=== PATIENT | male | born 1960 | race African-American/Black ===

== ENCOUNTER 2018-07-04 12:02 | Inpatient (IN) | payer MEDICAID ==
[~2018-07-04] VITALS: Ht 167.6 cm; Wt 57.6 kg
[2018-07-04 12:07] VITALS: BP 102/70
--- NOTE | 2018-07-04 12:10 | NUR ---
Pt to rm 10 via [facility]
--- NOTE | 2018-07-04 12:15 | NUR ---
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 PER REPORT, PT WAS 80S SYSTOLIC. ON ARRIVAL, OL=373/70. IVF FLUIDS GIVEN POULTRY DRESSING WORKER VIA 22G TO LEFT FOREARM. PT IS NON VERBAL, SPONTANEOUS EYE MOMENT, SPONTANEOUS MOVEMENT TO BL ARMS. PT HAS TRACHEOSTOMY TO 2L OF NC. PER REPORT, PT IS ACTING AT NEURO BASELINE. RR ARE EVEN AND UNLABORED. PULSE HH=509% 2L NC. ABD SOFT AND NON TENDER. GT NOTED TO ABD, DRESSING DRY/CLEAN/INTACT. PT IS 0/10 ON FLACC PAIN SCALE. NAD. PT TO CARDIAC, BP, PULSE, AND PULSE OX MONITORING. ER MD LINK AWARE OF PATIENT STATUS. WILL CONTINUE TO MONITOR.
[2018-07-04] MEDS ORDERED: LACT1CAP59 GT (12:33)
[2018-07-04] MEDS ORDERED: VALP-22 GT (12:33)
[2018-07-04] MEDS ORDERED: CHLO480L1 PO (12:33)
[2018-07-04] MEDS ORDERED: ASPI-1129 GT (12:33)
[2018-07-04] MEDS ORDERED: ACET-7756 PO (12:33)
[2018-07-04] MEDS ORDERED: HYDR-5123 PO (12:33)
[2018-07-04] MEDS ORDERED: PRON INH (12:33)
[2018-07-04] MEDS ORDERED: MULT1SGL58 GT (12:33)
[2018-07-04] MEDS ORDERED: COL100L GT (12:33)
[2018-07-04] MEDS ORDERED: KEP500L GT (12:33)
[2018-07-04] MEDS ORDERED: ATEN50TA8 GT (12:33)
[2018-07-04] MEDS ORDERED: FAMO-90 GT (12:33)
[2018-07-04] MEDS ORDERED: ASCO500T45 GT (12:33)
[2018-07-04] MEDS ORDERED: BACL10TA4 GT (12:33)
[2018-07-04] MEDS ORDERED: HEPA500056 SUBQ (12:33)
--- NOTE | 2018-07-04 12:38 | NUR ---
lab by bedside
--- NOTE | 2018-07-04 12:40 | NUR ---
influenza swab collected and sent to lab
--- NOTE | 2018-07-04 12:40 | NUR ---
# 16 FR Urinary catheter inserted utilizing sterile technique. Immediate return of 100 ml dark yellow slightly cloudy urine noted. Urine sample collected and sent to lab. Pt tolerated procedure well.
--- NOTE | 2018-07-04 12:46 | NUR ---
xray by bedside
[2018-07-04 13:07] LABS: BASOPHILS % (AUTO) 0.2 % (0.0-2.0); EOSINOPHILS # (AUTO) 0.1 K/uL (0-0.4); EOSINOPHILS % (AUTO) 1.2 % (0.0-4.0); HEMATOCRIT 37.9 % (36-52); HEMOGLOBIN 12.1 g/dL (12.0-18.0); LYMPHOCYTES # (AUTO) 2.5 K/uL (2.0-11.5); LYMPHOCYTES % (AUTO) 19.7 % (20.5-51.1); MEAN CORPUSCULAR HEMOGLOBIN 30 pg (27-31); MEAN CORPUSCULAR HGB CONC 32 g/dL (33-37); MEAN CORPUSCULAR VOLUME 93.4 fL (80-94); MONOCYTES # (AUTO) 1.3 K/uL (0.8-1.0); MONOCYTES % (AUTO) 9.8 % (1.7-9.3); NEUTROPHILS # (AUTO) 8.8 K/uL (1.8-7.7); NEUTROPHILS % (AUTO) 69.1 % (42.2-75.2); PLATELET COUNT (AUTO) 228 K/uL (140-450); RED BLOOD CELL COUNT(AUTO) 4.06 MIL/uL (4.20-6.10); RED CELL DISTRIBUTION WIDTH 13.6 % (11.6-13.7); WHITE BLOOD COUNT (AUTO) 12.8 K/uL (4.8-10.8)
[2018-07-04 13:08] LABS: APPEARANCE,URINE CLEAR (CLEAR); BILIRUBIN,URINE NEGATIVE (NEGATIVE); BLOOD, URINE NEGATIVE (NEGATIVE); COLOR,URINE YELLOW (YELLOW); LEUKOCYTE ESTERASE ,URINE NEGATIVE (NEGATIVE); NITRITE, URINE NEGATIVE (NEGATIVE); PH,URINE 7.5 (5.0-9.0); UGLUCOSE NEGATIVE (NEGATIVE)
[2018-07-04 13:28] LABS: ALBUMIN 2.9 g/dL (3.4-5.0); ANION GAP 8.4 (8-16); CREATININE 0.5 mg/dL (0.7-1.3); POTASSIUM 4.4 mmol/L (3.5-5.1); TOTAL BILIRUBIN 0.3 mg/dL (0.0-1.0)
--- NOTE | 2018-07-04 13:43 | NUR ---
AWAITING LAB RESULTS. NAD. VSS. WILL CONTINUE TO MONITOR.
[2018-07-04] MEDS ORDERED: ZOLPIDEM 5 MG TAB PO PRN (14:25)
[2018-07-04] MEDS ORDERED: LORazepam 2 MG/ML VIAL IM/IVP PRN (14:25)
[2018-07-04] MEDS ORDERED: ONDANSETRON 4 MG/2 ML VIAL IM/IVP PRN (14:25)
[2018-07-04] MEDS ORDERED: ACETAMINOPHEN 325 MG TAB PO PRN (14:25)
[2018-07-04] MEDS ORDERED: DOCUSATE SODIUM 100 MG GELCAP PO PRN (14:25)
[2018-07-04] MEDS ORDERED: HYDROcodone/APAP 5/325 MG 1 TAB TAB PO PRN (14:25)
[2018-07-04] MEDS: NACL 0.9% 1,000 ML IV SCH ×3 (14:33→16:03)
[2018-07-04] MEDS ORDERED: ALBUTEROL SULFATE/IPRATROPIU 3 ML SOL IH PRN (14:45)
[2018-07-04] MEDS ORDERED: HYDROcodone/APAP 7.5/325 MG 1 TAB PO PRN (14:45)
[2018-07-04] MEDS ORDERED: ACETAMINOPHEN 160 MG/5 ML UDC PO PRN (14:45)
--- NOTE | 2018-07-04 15:15 | NUR ---
Admitted pt from ER at this time via gurney. Transferred to bed via 3-person total assist. Received bedside report from ER nurse. Pt is awake, nonverbal, able to nod head in reply to some questions. Left upper arm IV patent & asymptomatic. Respirations even & nonlabored on O2 @ 3Lpm via trach. Rhonchi present to bilat lung zheng. Mod amt thick yellow secretions present upon trach suctioning. Trach dressing clean & dry. Gtube intact & in place. Pt oriented to room & unit. Unable to return demonstrate use of call button. Call light within reach.
--- NOTE | 2018-07-04 15:27 | NUR ---
Patient will be admitted to care of DR. MIRANDA. Admited to TELE. Will go to room 107A. Belongings list completed. Report to ASHLEY SOLIS.
[2018-07-04 15:30] VITALS: BP 81/45
[2018-07-04 15:36] LABS: BARBITURATE, URINE NEG. ng/ml (NEG <=200); BENZODIAZEPINE, URINE NEG. ng/mL (NEG <=200); CANNABINOID, URINE NEG. ng/mL (NEG <=50); COCAINE, URINE NEG. ng/mL (NEG <=300); OPIATE, URINE NEG. ng/mL (NEG <=2000); PHENCYCLIDINE SCREEN,URINE NEG. ng/mL (NEG <=25)
[2018-07-04 15:45] LABS: CHOL/HDL RATIO 2.6 (1-4.5); MAGNESIUM 1.6 mg/dL (1.8-2.4); PHOSPHORUS 2.9 mg/dL (2.5-4.9); PROTHROMBIN TIME 10.1 secs (10.8-13.4); THYROID STIMULATING HORMONE 1.77 uIU/mL (0.34-3.74)
[2018-07-04] MEDS ORDERED: NACL 0.9% 500 ML IV ONE (15:55)
--- NOTE | 2018-07-04 16:04 | NUR ---
Initiated bolus NS 500ml to left upper arm IV. Pt awake, nonverbal, respirations even & nonlabored on O2 @ 3Lpm via trach.
[2018-07-04] MEDS ORDERED: PIPER/TAZO 3.375GM/D5W PREMIX 50 ML IV SCH ×2 (16:16→21:00)
[2018-07-04 17:00] VITALS: BP 95/57
--- NOTE | 2018-07-04 17:00 | NUR ---
Observed pt pulling on trach with his right hand. Mod bleeding observed to trach peristoma. Trach intact. RT Vinay notified. Pt's respirations even & nonlabored, SaO2 @ 100% on 3Lpm via trach. NS 500ml bolus completed. BP reassessed. Dr Haynes notified of trach bleeding d/t pulling on tubes. Left upper arm IV intact, ongoing NS @ 60ml/hr.
--- NOTE | 2018-07-04 17:15 | NUR ---
Bilat soft wrist restraints applied d/t episodes of pulling on tubes/lines despite hiding them. Safety measures in place. Will cont to monitor.
[2018-07-04] MEDS ORDERED: ALBUTEROL 0.083% 2.5 MG/3 ML NEBU INH SCH (18:00)
[2018-07-04] MEDS ORDERED: ALBUTEROL SULFATE/IPRATROPIU 3 ML SOL IH SCH (18:00)
[2018-07-04] MEDS ORDERED: MAG SULF 2000 MG/WATER PREMIX 50 ML IV SCH (19:00)
--- NOTE | 2018-07-04 19:25 | NUR ---
RECEIVED PATIENT WITH TRACH TO T-PIECE WITH 32% OXYGEN. RESPIRATION EVEN AND NON-LABORED. WITH BILATERAL SOFT WRIST RESTRAINT IN PLACE. NO S/S OF DISTRESS NOTED.AT THIS TIME. REPOSITIONED PATIENT AND PLACE IN COMFORTABLE POSITION. CALL LIGHT WITHIN REACH.
[2018-07-04] MEDS: ALBUTEROL SULFATE/IPRATROPIU 3 ML SOL IH SCH (20:22)
[2018-07-04] MEDS: VALPROIC ACID 250 MG/5 ML UDC GT SCH (20:41)
[2018-07-04] MEDS: DOCUSATE 100 MG/10 ML UDC GT SCH (20:41)
[2018-07-04] MEDS: levETIRAcetam 100 MG/ML ORASYR GT SCH (20:42)
[2018-07-04] MEDS: PIPER/TAZO 3.375GM/D5W PREMIX 50 ML IV SCH (20:43)
[2018-07-04] MEDS: BACLOFEN 10 MG TAB GT SCH (20:43)
[2018-07-04] MEDS: FAMOTIDINE 20 MG TAB GT SCH (20:43)
[2018-07-04] MEDS: ASCORBIC ACID 500 MG TAB GT SCH (20:44)
--- NOTE | 2018-07-04 21:00 | NUR ---
V/S TAKEN AND RECORDED. SCHEDULE MEDICATION GIVEN . TOLERATED WELL. TUBE FEEDING RUNNING. HOB ELEVATED. CHECK RESTRAINTS FOR CIRCULATION. NO S/S OF DISTRESS NOTED.CALL LIGHT WITHIN REACH. WILL CONTINUE TO MONITOR.
--- NOTE | 2018-07-04 22:30 | NUR ---
RECEIVED PT FROM MARJORIE FOR CONTINUITY OF CARE
[2018-07-05] VITALS: BP 137/56
--- NOTE | 2018-07-05 | NUR ---
V/S T6AKEN, NO RESPIRATORY DISTRESS, CONTINUES ON O2 VIA TRACH TO T-PIECE. TURN FOR COMFORT. RELEASE RESTRAINT FOR 10 MIN.
--- NOTE | 2018-07-05 02:00 | NUR ---
CHECKED PT. RELEASE RESTRAINT FOR 10 MIN,SKIN OK.
[2018-07-05 04:00] VITALS: BP 106/63
--- NOTE | 2018-07-05 04:00 | NUR ---
NO RESPIRATORY DISTRESS, RESTRAINT RELEASE FOR 10 MIN. RT WILL DO TRACH CARE.
[2018-07-05] MEDS: PIPER/TAZO 3.375GM/D5W PREMIX 50 ML IV SCH ×3 (04:50→20:52)
[2018-07-05] MEDS: BACLOFEN 10 MG TAB GT SCH ×3 (04:58→20:51)
--- NOTE | 2018-07-05 06:00 | NUR ---
NO RESPIRATORY DISTRESS, CONTUES ON 02 VIA TRACH TO T-PIECE, TOOLERATING TUBE FEEDING.
[2018-07-05] MEDS: NACL 0.9% 1,000 ML IV SCH (07:03)
[2018-07-05] MEDS: ALBUTEROL SULFATE/IPRATROPIU 3 ML SOL IH SCH ×3 (07:05→19:18)
[2018-07-05] MEDS ORDERED: ALBUTEROL SULFATE/IPRATROPIU 3 ML SOL IH PRN (07:15)
--- NOTE | 2018-07-05 07:20 | NUR ---
RECEIVED BEDSIDE REPORT FROM UI DESIGNER NURSE. PATIENT NONVERBAL AND BEDBOUND. PATIENT ON TRACH AT 8 L, NO RESPIRATORY DISTRESS AT THIS TIME. PATIENT INCONTINENT OF BOWEL AND BLADDER. IV ON RUTH 22 G INFUSING NS AT 60, CLEAN DRY AND INTACT. PATIENT G TUBE IN PLACE, RUNNING JEVITY 1.2 AT 70 H2O FLUSH 250 Q 12HR. G TUBE DRY AND INTACT. PATIENT ON FALL RISK PRECAUTION. BED IN LOW POSITION, CALL LIGHT WITHIN REACH. WILL CONTINUE TO MONITOR.
[2018-07-05 08:00] VITALS: BP 99/64
[2018-07-05 08:12] LABS: BASOPHILS % (AUTO) 0.3 % (0.0-2.0); EOSINOPHILS # (AUTO) 0.2 K/uL (0-0.4); EOSINOPHILS % (AUTO) 1.7 % (0.0-4.0); HEMOGLOBIN 11.4 g/dL (12.0-18.0); LYMPHOCYTES # (AUTO) 2.8 K/uL (2.0-11.5); LYMPHOCYTES % (AUTO) 27.2 % (20.5-51.1); MEAN CORPUSCULAR HEMOGLOBIN 30 pg (27-31); MEAN CORPUSCULAR HGB CONC 33 g/dL (33-37); MEAN CORPUSCULAR VOLUME 92.9 fL (80-94); MONOCYTES % (AUTO) 9.9 % (1.7-9.3); NEUTROPHILS # (AUTO) 6.2 K/uL (1.8-7.7); NEUTROPHILS % (AUTO) 60.9 % (42.2-75.2); PLATELET COUNT (AUTO) 200 K/uL (140-450); RED BLOOD CELL COUNT(AUTO) 3.76 MIL/uL (4.20-6.10); RED CELL DISTRIBUTION WIDTH 13.5 % (11.6-13.7); WHITE BLOOD COUNT (AUTO) 10.2 K/uL (4.8-10.8)
[2018-07-05] MEDS ORDERED: LACTOBACILLUS RHAMNOSUS GG 1 EACH CAP PO SCH (09:00)
[2018-07-05] MEDS ORDERED: ATENOLOL 50 MG TAB GT SCH (09:00)
[2018-07-05 09:13] LABS: CARBON DIOXIDE 28.4 mmol/L (21-32); CREATININE 0.6 mg/dL (0.7-1.3); POTASSIUM 4.4 mmol/L (3.5-5.1)
[2018-07-05] MEDS: levETIRAcetam 100 MG/ML ORASYR GT SCH ×2 (09:16→20:50)
[2018-07-05] MEDS: DOCUSATE 100 MG/10 ML UDC GT SCH ×2 (09:16→20:48)
[2018-07-05] MEDS: VALPROIC ACID 250 MG/5 ML UDC GT SCH ×2 (09:16→20:50)
[2018-07-05] MEDS: FAMOTIDINE 20 MG TAB GT SCH ×2 (09:17→20:51)
[2018-07-05] MEDS: ASCORBIC ACID 500 MG TAB GT SCH ×2 (09:17→20:52)
[2018-07-05 09:27] LABS: MAGNESIUM 2.1 mg/dL (1.8-2.4)
--- NOTE | 2018-07-05 09:29 | NUR ---
CALLED PHARMACY REGARDING LACTOBACILLUS CAPSULE PO ROUTE. PHARMACY SWITCHED IT TO GT ROUTE. ADMINISTERED LACTOBACILLUS CAPSULE VIA GT.
--- NOTE | 2018-07-05 09:39 | NUR ---
ADMINISTERED SCHEDULED MEDS VIA G TUBE. CHECKED FOR PLACEMENT, SWISH HEARD, AND 0 ML RESIDUAL. PATIENT TOLERATED WELL. WILL CONTINUE TO MONITOR.
[2018-07-05] MEDS ORDERED: NACL 0.9% 500 ML IV ONE (11:35)
--- NOTE | 2018-07-05 11:39 | NUR ---
DR. PACE NOTIFIED OF BP 81/46, PULSE 78 AND ANOTHER BP 85/48 PULSE 76. ORDERED BOLUS OF 500 NS. PATIENT STARTED ON NS 500 BOLUS. WILL RECHECK BLOOD PRESSURE.
[2018-07-05 12:00] VITALS: BP 97/59
[2018-07-05] MEDS ORDERED: ALBUTEROL SULFATE/IPRATROPIU 3 ML SOL IH SCH (12:00)
--- NOTE | 2018-07-05 12:23 | NUR ---
DR. PACE NOTIFIED VIA PHONE OF BP 97/59 AND PULSE 62. PATIENT ASYMPTOMATIC. DR BROWN WITH BP AND PULSE. NO FURTHER ACTION NEEDED
--- NOTE | 2018-07-05 15:13 | NUR ---
ASSESSED PATIENTS SOFT WRIST RESTRAINTS, 2 FINGER WIDTH APART, CAP REFILL LESS THAN 2 SECONDS, PALPABLE PULSES ON BOTH WRISTS. NO SIGNS OF DISTRESS AT THIS TIME, ON TRACH 8 L. WILL CONTINUE TO MONITOR.
[2018-07-05 16:38] VITALS: BP 94/50
--- NOTE | 2018-07-05 18:24 | NUR ---
SPOKE TO DR. JOYCE REGARDING RENEWAL OF SOFT WRIST RESTRAINTS. ORDER IS IN PROCESS.
--- NOTE | 2018-07-05 19:30 | NUR ---
PT AWAKE,ALERT,SPEAKS A LITTLE ARABIC.C/O PAIN IV SITE AND LOOKS RED AND SWOLLEN. STOP IV AND WILL START A NEW ONE ARYA.
--- NOTE | 2018-07-05 19:30 | NUR ---
PT AWAKE, APHASIC, NO SIGN OF RESPIRATORY DISTRESS O2 ON VIA TRACH T-PIECE.
--- NOTE | 2018-07-05 19:47 | NUR ---
GAVE BEDSIDE REPORT TO DENTAL HYGIENE PROFESSOR NURSE. PATIENT ENDORSED IN STABLE CONDITION.
[2018-07-05 20:00] VITALS: BP 108/51
--- NOTE | 2018-07-05 20:00 | NUR ---
IV RESTARTED IN THE L WRIST WITH #20 GAUGE. Addendum: 07/05/18 at 2020 by Marce Smith RN NOTES FOR 1929 AND 1999 IS WRONG PT/.
--- NOTE | 2018-07-05 22:00 | NUR ---
RESTING QUIETLY, RESTRAINT IN PLACE, PT PULLS OUT TRACH AD IV TUBING WHEN AWAKE.
[2018-07-06] VITALS: BP_SYST 100; BP_SYST 90; BP_DIAS 43; BP_DIAS 64
--- NOTE | 2018-07-06 00:20 | NUR ---
RECEIVED REPORT FROM COLLECTION MANAGER LINDA FOR CONTINUITY OF CARE. PT IS NON-VERBAL ON 8L O2 VIA TRACH TO T-PIECE. PT IS UNABLE TO MAKE NEEDS KNOWN, UNABLE TO FOLLOW COMMANDS. PT IS BEDBOUND, AND SKIN IS INTACT. PT HAS A 22G IV TO LEFT UPPER ARM, ASYMPTOMATIC AND INTACT. G-TUBE IN PLACE WITH TUBE FEEDING. DISCUSSED PLAN OF CARE WITH PT. VITAL SIGNS WITHIN NORMAL LIMITS. PT STABLE, DENIES PAIN, NO SIGNS OF DISTRESS NOTED AT THIS TIME. PT POSITIONED FOR COMFORT. BED IN LOWEST POSITION, BED ALARM ON. CALL LIGHT WITHIN REACH, WILL CONTINUE TO MONITOR.
[2018-07-06] MEDS: NACL 0.9% 1,000 ML IV SCH ×2 (01:44→16:23)
--- NOTE | 2018-07-06 02:39 | NUR ---
T-PIECE FOUND OFF TRACH AND ON BED, REATTACHED IT BUT WHEN I CAME BACK IN T-PIECE WAS ON THE BED AGAIN. CALLED RT KACIE AND HE IS FIXING IT NOW.
[2018-07-06 04:00] VITALS: BP 105/57
--- NOTE | 2018-07-06 04:00 | NUR ---
VITAL SIGNS WITHIN NORMAL LIMITS. PT STABLE, DENIES PAIN, NO SIGNS OF DISTRESS NOTED AT THIS TIME. PT POSITIONED FOR COMFORT. BED IN LOWEST POSITION, BED ALARM ON. CALL LIGHT WITHIN REACH, WILL CONTINUE TO MONITOR.
[2018-07-06] MEDS: PIPER/TAZO 3.375GM/D5W PREMIX 50 ML IV SCH ×3 (05:38→20:55)
[2018-07-06] MEDS: BACLOFEN 10 MG TAB GT SCH ×3 (05:38→20:56)
--- NOTE | 2018-07-06 05:39 | NUR ---
ADMINISTERED SCHEDULED MEDICATIONS, PT TOLERATED WELL.
--- NOTE | 2018-07-06 07:32 | NUR ---
ENDORSED PT TO IRMA CROWLEY FOR CONTINUITY OF CARE. PT IN STABLE CONDITION.
--- NOTE | 2018-07-06 07:38 | NUR ---
RECEIVED BEDSIDE REPORT FROM OXYACETYLENE CUTTER RN. PT IS APHASIC. FLACC 0. NO S/S RESPIRATORY DISTRESS. SKIN INTACT. ON 8L O2 VIA TRACH TO T-PIECE, SATURATING 100%. PT IS UNABLE TO MAKE NEEDS KNOWN, UNABLE TO FOLLOW COMMANDS. PT IS BEDBOUND AND INCONTINENT. IV SITE PATENT AND ASYMPTOMATIC, INFUSING IVF PER MD ORDERS. G-TUBE FEEDINGS AT GOAL RATE 70ML/HR. RESTRAINTS IN PLACE, PT HAS BEEN PULLING AT TRACH. ALL SAFETY PRECAUTIONS IN PLACE, WILL CONTINUE TO MONITOR.
[2018-07-06 07:54] LABS: BASOPHILS % (AUTO) 0.3 % (0.0-2.0); EOSINOPHILS # (AUTO) 0.1 K/uL (0-0.4); HEMATOCRIT 33.9 % (36-52); HEMOGLOBIN 11.1 g/dL (12.0-18.0); LYMPHOCYTES # (AUTO) 2.6 K/uL (2.0-11.5); LYMPHOCYTES % (AUTO) 28.7 % (20.5-51.1); MEAN CORPUSCULAR HEMOGLOBIN 31 pg (27-31); MEAN CORPUSCULAR HGB CONC 33 g/dL (33-37); MEAN CORPUSCULAR VOLUME 94.8 fL (80-94); MONOCYTES # (AUTO) 0.8 K/uL (0.8-1.0); MONOCYTES % (AUTO) 8.7 % (1.7-9.3); NEUTROPHILS # (AUTO) 5.4 K/uL (1.8-7.7); NEUTROPHILS % (AUTO) 61.3 % (42.2-75.2); PLATELET COUNT (AUTO) 154 K/uL (140-450); RED BLOOD CELL COUNT(AUTO) 3.58 MIL/uL (4.20-6.10); RED CELL DISTRIBUTION WIDTH 13.4 % (11.6-13.7); WHITE BLOOD COUNT (AUTO) 8.9 K/uL (4.8-10.8)
[2018-07-06 08:00] VITALS: BP 84/47
[2018-07-06 08:18] LABS: ANION GAP 10.3 (8-16); CARBON DIOXIDE 28.9 mmol/L (21-32); CREATININE 0.6 mg/dL (0.7-1.3); POTASSIUM 4.2 mmol/L (3.5-5.1)
[2018-07-06 08:24] LABS: MAGNESIUM 1.9 mg/dL (1.8-2.4); PHOSPHORUS 3.2 mg/dL (2.5-4.9)
[2018-07-06] MEDS: ALBUTEROL SULFATE/IPRATROPIU 3 ML SOL IH SCH ×3 (08:45→19:08)
[2018-07-06] MEDS: levETIRAcetam 100 MG/ML ORASYR GT SCH ×2 (09:02→20:55)
[2018-07-06] MEDS: VALPROIC ACID 250 MG/5 ML UDC GT SCH (09:02)
[2018-07-06] MEDS: DOCUSATE 100 MG/10 ML UDC GT SCH ×2 (09:02→20:55)
[2018-07-06] MEDS: ASCORBIC ACID 500 MG TAB GT SCH ×2 (09:03→20:56)
[2018-07-06] MEDS: LACTOBACILLUS RHAMNOSUS GG 1 EACH CAP GT SCH (09:03)
[2018-07-06] MEDS: FAMOTIDINE 20 MG TAB GT SCH ×2 (09:03→20:56)
--- NOTE | 2018-07-06 09:20 | NUR ---
PATIENT HAS BEEN SCREENED AND CATEGORIZED HIGH NUTRITION RISK. PATIENT WILL BE SEEN WITHIN 1-2 DAYS OF ADMISSION. 07/05/18 07/06/[address]
--- NOTE | 2018-07-06 10:12 | NUR ---
T PIECE OFF PATIENT. NO DESATURATION. NO S/S RESPIRATORY DISTRESS. SECURED BACK ONTO PT.
[2018-07-06 12:00] VITALS: BP 105/61
--- NOTE | 2018-07-06 13:01 | NUR ---
PT SLEEPING IN BED, EYES OPENING TO VOICE. FLACC 0. ALL SAFETY PRECAUTIONS IN PLACE, WILL CONTINUE TO MONITOR.
--- NOTE | 2018-07-06 14:00 | NUR ---
07/06/18 RD INITIAL ASSESSMENT COMPLETED PLEASE REFER TO NUTRITION ASSESSMENT UNDER CARE ACTIVITY FOR ESTIMATED NUTRITIONAL NEEDS. 1. RECOMMEND DECREASE TUBE FEEDING RATE TO 60 ML/HR JEVITY 1.2 AT 60 ML/HR VIA GTUBE - THIS WILL PROVIDE 1440 ML TOTAL VOLUME, 1728 KCAL, 80 GM PROTEIN TO MEET 100% OF PT ESTIMATED KCAL AND PROTEIN NEEDS 3. RD TO FOLLOW-UP 2-3 DAYS, HIGH RISK MORGAN RIVERA, RD
--- NOTE | 2018-07-06 14:15 | NUR ---
SCHEDULED MEDICATIONS ADMINISTERS PER MD ORDERS.
[2018-07-06 16:00] VITALS: BP 110/74
--- NOTE | 2018-07-06 16:40 | NUR ---
NEW FEEDING JEVITY 1.2 STARTED. RATE 70ML/HR.
[2018-07-06] MEDS ORDERED: VALPROIC ACID 250 MG/5 ML UDC GT SCH (17:00)
--- NOTE | 2018-07-06 19:15 | NUR ---
RECEIVED BEDSIDE REPORT FROM RN KEO, PATIENT IN BED, NOTED TRAC TO T PIECE, ON 8 L. V/S TAKEN NOTED O2SAT 100 RR 18 UNLABORED. PATIENT SHOWING NO SIGNS OF ACUTE DISTRESS. NOTED IV IN LEFT UPPER ARM INFUSING NS AT 60 ML/HR, DRESSING INTACT. WILL GIVE MEDS, CALL LIGHT WITHIN REACH, WILL CONTINUE MONITOR.
--- NOTE | 2018-07-06 19:15 | NUR ---
ENDORSED POC TO LENS ASSISTANT RN AT BEDSIDE. PT IN STABLE CONDITION.
[2018-07-06 20:00] VITALS: BP 128/79
--- NOTE | 2018-07-06 20:32 | NUR ---
ATTEMPTED TO REMOVE SOFT WRIST RESTRAINTS, CIRCULATION NOT COMPROMISED, PATIENT ATTEMPTED TO PULL ON TRAC TUBING. WILL CONTINUE TO MONITOR.
--- NOTE | 2018-07-06 20:56 | NUR ---
DUE MEDICATIONS GIVEN, PATIENT TOLERATED WELL, 10 RESIDUES NOTED. WILL CONTINUE TO MONITOR.
--- NOTE | 2018-07-06 22:32 | NUR ---
RESTRAINTS STILL NEEDED DUE TO PATIENT ATTEMPTING TO PULL ON TRAC TUBING. WILL CONTINUE TO MONITOR NEED OF RESTRAINTS AND ASSESS CIRCULATION.
[2018-07-07] VITALS: BP 111/69
--- NOTE | 2018-07-07 00:32 | NUR ---
PATIENT PULLING AT TUBES, WILL CONTINUE WITH SOFT WRIST RESTRAINTS.
--- NOTE | 2018-07-07 02:32 | NUR ---
PATIENT PULLING AT TUBES, WILL CONTINUE WITH SOFT WRIST RESTRAINTS. WILL CONTINUE TO ASSES CIRCULATION.
[2018-07-07 04:00] VITALS: BP_SYST 136; BP_SYST 146; BP_DIAS 66
--- NOTE | 2018-07-07 04:00 | NUR ---
V/S TAKEN NOTED BP 136/66 WILL CONTINUE TO MONITOR.
[2018-07-07] MEDS: BACLOFEN 10 MG TAB GT SCH ×3 (04:09→21:43)
[2018-07-07] MEDS: PIPER/TAZO 3.375GM/D5W PREMIX 50 ML IV SCH ×3 (04:09→21:44)
--- NOTE | 2018-07-07 06:15 | NUR ---
PATIENT PULLING AT TUBES, WILL CONTINUE WITH SOFT WRIST RESTRAINTS. WILL CONTINUE TO MONITOR.
--- NOTE | 2018-07-07 07:19 | NUR ---
ENDORSED PATIENT TO DAY SHIFT NURSE, PATIENT STABLE.
[2018-07-07] MEDS: ALBUTEROL SULFATE/IPRATROPIU 3 ML SOL IH SCH ×3 (07:23→19:50)
--- NOTE | 2018-07-07 07:26 | NUR ---
RECEIVED BEDSIDE REPORT FROM CLEANER AND PREPARER RN. PT IS APHASIC. EYES OPENING SPONTANEOUSLY. FLACC 0. VITALS STABLE. NO S/S RESPIRATORY DISTRESS. SKIN INTACT. ON 8L O2 VIA TRACH TO T-PIECE, SATURATING 100%. PT IS UNABLE TO VERBALIZE NEEDS, UNABLE TO FOLLOW COMMANDS. PT IS BEDBOUND AND INCONTINENT. IV SITE PATENT AND ASYMPTOMATIC, INFUSING IVF PER MD ORDERS. G-TUBE FEEDINGS AT GOAL RATE 70ML/HR. RESTRAINTS IN PLACE, PT HAS BEEN PULLING AT TRACH. ALL SAFETY PRECAUTIONS IN PLACE, WILL CONTINUE TO MONITOR.
[2018-07-07 07:51] LABS: BASOPHILS % (AUTO) 0.3 % (0.0-2.0); EOSINOPHILS # (AUTO) 0.1 K/uL (0-0.4); EOSINOPHILS % (AUTO) 1.3 % (0.0-4.0); HEMATOCRIT 36.6 % (36-52); HEMOGLOBIN 11.8 g/dL (12.0-18.0); LYMPHOCYTES # (AUTO) 2.7 K/uL (2.0-11.5); LYMPHOCYTES % (AUTO) 26.8 % (20.5-51.1); MEAN CORPUSCULAR HEMOGLOBIN 30 pg (27-31); MEAN CORPUSCULAR HGB CONC 32 g/dL (33-37); MEAN CORPUSCULAR VOLUME 93.3 fL (80-94); MONOCYTES % (AUTO) 10.4 % (1.7-9.3); NEUTROPHILS # (AUTO) 6.1 K/uL (1.8-7.7); NEUTROPHILS % (AUTO) 61.2 % (42.2-75.2); PLATELET COUNT (AUTO) 193 K/uL (140-450); RED BLOOD CELL COUNT(AUTO) 3.92 MIL/uL (4.20-6.10); RED CELL DISTRIBUTION WIDTH 13.7 % (11.6-13.7)
[2018-07-07 08:00] VITALS: BP 136/97
[2018-07-07] MEDS ORDERED: VALPROIC ACID 250 MG/5 ML UDC GT SCH ×2 (08:07→21:00)
[2018-07-07 08:10] LABS: ANION GAP 13.9 (8-16); CARBON DIOXIDE 28.2 mmol/L (21-32); CREATININE 0.5 mg/dL (0.7-1.3); POTASSIUM 4.1 mmol/L (3.5-5.1)
[2018-07-07] MEDS: levETIRAcetam 100 MG/ML ORASYR GT SCH ×2 (08:38→21:43)
[2018-07-07] MEDS: DOCUSATE 100 MG/10 ML UDC GT SCH ×2 (08:38→21:43)
[2018-07-07] MEDS: ASCORBIC ACID 500 MG TAB GT SCH ×2 (08:39→21:44)
[2018-07-07] MEDS: ATENOLOL 25 MG TAB GT SCH (08:39)
[2018-07-07] MEDS: FAMOTIDINE 20 MG TAB GT SCH ×2 (08:39→21:44)
[2018-07-07] MEDS: NACL 0.9% 1,000 ML IV SCH ×2 (08:40→19:27)
[2018-07-07] MEDS: LACTOBACILLUS RHAMNOSUS GG 1 EACH CAP GT SCH (08:40)
[2018-07-07 08:42] LABS: PHOSPHORUS 3.2 mg/dL (2.5-4.9)
--- NOTE | 2018-07-07 10:14 | NUR ---
CHANGED PATIENT'S BEDSHEETS AND REPOSITIONED FOR COMFORT. NO S/S DISTRESS. ALL SAFETY PRECAUTIONS IN PLACE, WILL CONTINUE TO MONITOR.
[2018-07-07 12:00] VITALS: BP 124/81
[2018-07-07] MEDS: VALPROIC ACID 250 MG/5 ML UDC GT SCH (12:10)
--- NOTE | 2018-07-07 12:11 | NUR ---
SCHEDULED MEDICATIONS ADMINISTERED. GASTRIC RESIDUAL LESS THAN 20 ML. G-TUBE FEEDINGS RUNNING CONTINUOUSLY. HOB 30 DEGREES. WILL CONTINUE TO MONITOR.
--- NOTE | 2018-07-07 15:04 | NUR ---
PT SLEEPING IN BED, EYES OPENING TO TOUCH. BEDSHEETS CHANGED AND PT POSITIONED FOR COMFORT. ALL SAFETY PRECAUTIONS IN PLACE, WILL CONTINUE TO MONITOR.
[2018-07-07 16:00] VITALS: BP 130/99
--- NOTE | 2018-07-07 16:48 | NUR ---
PT HAD BM SMEAR. CLEANED UP PATIENT AND REPOSITIONED FOR COMFORT. ALL SAFETY PRECAUTIONS IN PLACE, WILL CONTINUE TO MONITOR.
--- NOTE | 2018-07-07 19:05 | NUR ---
ENDORSED POC TO SCALES INSPECTOR RN. PT IN STABLE CONDITION.
--- NOTE | 2018-07-07 19:05 | NUR ---
RECEIVED BEDSIDE REPORT FROM RN KEO, PATIENT IN BED, APHASIC, TRAC TO T PIECE ON 8 L, ON WRIST RESTRAINTS DUE TO PATIENT ATTEMPTING TO REMOVE T PIECE. CIRCULATION ASSESSED AND NO COMPROMISE NOTED. G-TUBE IN PLACE INFUSING AT 70 ML/HR. IV IN LEFT UPPER ARM, DRESSING INTACT, INFUSING NS AT 60 ML/HR. V/S TAKEN ALL WITHIN BASELINE, BED IN LOWEST POSITION, CALL LIGHT WITHIN REACH, WILL CONTINUE TO MONITOR.
--- NOTE | 2018-07-07 19:35 | NUR ---
CALL FROM LAB [facility] POSITIVE FOR MDRO. PLACED PATIENT ON CONTACT ISOLATION PRECAUTIONS.
--- NOTE | 2018-07-07 19:40 | NUR ---
RESTRAINTS STILL NEED AT THIS TIME, CIRCULATION NOT COMPROMISED.
[2018-07-07 20:00] VITALS: BP 135/92
--- NOTE | 2018-07-07 21:40 | NUR ---
RESTRAINTS STILL IN PLACE, CIRCULATION ASSESSED AND NO COMPROMISED NOTED, PATIENT CONTINUING TO PULL AT T PIECE.
--- NOTE | 2018-07-07 21:42 | NUR ---
DUE MEDICATIONS GIVEN, 5 ML RESIDUALS NOTED, ZOSYN INFUSING ACCORDING TO MD ORDER.
[2018-07-08] VITALS: BP 122/90
--- NOTE | 2018-07-08 | NUR ---
V/S TAKEN ALL WITHIN BASELINE, HOB AT 30 DEGREES, WILL CONTINUE TO MONITOR.
--- NOTE | 2018-07-08 01:22 | NUR ---
PATIENT LOOKED AGITATED, SUCTIONED PATIENT X1, MODERATE SECRETIONS NOTED, PATIENT MORE CALM, WILL CONTINUE TO MONITOR.
--- NOTE | 2018-07-08 03:40 | NUR ---
PATIENT CONTINUING TO PULL TUBES. CIRCULATION ASSESSED WITH CONTINUE WITH SOFT WRIST RESTRAINTS.
[2018-07-08 04:00] VITALS: BP 129/80
[2018-07-08] MEDS: PIPER/TAZO 3.375GM/D5W PREMIX 50 ML IV SCH ×2 (04:03→13:16)
[2018-07-08] MEDS: BACLOFEN 10 MG TAB GT SCH ×2 (04:03→13:16)
--- NOTE | 2018-07-08 04:03 | NUR ---
DUE MEDICATIONS GIVEN, NO RESIDUES NOTED.
[2018-07-08] MEDS ORDERED: VALPROIC ACID 250 MG/5 ML UDC GT SCH (05:00)
--- NOTE | 2018-07-08 07:28 | NUR ---
ENDORSED PATIENT O DAY SHIFT NURSE, PATIENT STABLE.
--- NOTE | 2018-07-08 07:29 | NUR ---
RECEIVED REPORT FROM NIGHT NURSE. PT IN STABLE CONDITION. RESPIRATIONS EVEN AND UNLABORED. TRACH TO O2 8L. IV INTACT AND PATENT. SAFETY MEASURE IN PLACE. CALL LIGHT AT BEDSIDE. BED IN LOW POSITION. HOB ELEVATED 30 DEGREES. WILL CONTINUE TO MONITOR.
[2018-07-08 07:33] LABS: HEMATOCRIT 36.2 % (36-52); HEMOGLOBIN 11.6 g/dL (12.0-18.0); LYMPHOCYTES # (AUTO) 3.4 K/uL (2.0-11.5)
[2018-07-08] MEDS: ALBUTEROL SULFATE/IPRATROPIU 3 ML SOL IH SCH ×3 (07:51→19:01)
[2018-07-08 07:55] LABS: ANION GAP 10.8 (8-16); CARBON DIOXIDE 26.3 mmol/L (21-32); CREATININE 0.5 mg/dL (0.7-1.3); POTASSIUM 4.1 mmol/L (3.5-5.1)
[2018-07-08 07:57] LABS: BASOPHILS % (AUTO) 0.1 % (0.0-2.0); EOSINOPHILS # (AUTO) 0.3 K/uL (0-0.4); EOSINOPHILS % (AUTO) 2.5 % (0.0-4.0); LYMPHOCYTES % (AUTO) 31.8 % (20.5-51.1); MEAN CORPUSCULAR HEMOGLOBIN 30 pg (27-31); MEAN CORPUSCULAR HGB CONC 32 g/dL (33-37); MONOCYTES % (AUTO) 9.2 % (1.7-9.3); NEUTROPHILS % (AUTO) 56.4 % (42.2-75.2); PLATELET COUNT (AUTO) 156 K/uL (140-450); RED BLOOD CELL COUNT(AUTO) 3.86 MIL/uL (4.20-6.10); RED CELL DISTRIBUTION WIDTH 13.9 % (11.6-13.7); WHITE BLOOD COUNT (AUTO) 10.7 K/uL (4.8-10.8)
[2018-07-08 08:00] VITALS: BP 118/71
[2018-07-08] MEDS ORDERED: VALP-22 GT ×3 (08:43)
[2018-07-08] MEDS ORDERED: PIPE1SOL IV (08:43)
[2018-07-08] MEDS ORDERED: ATEN25TA2 GT (08:43)
--- NOTE | 2018-07-08 09:00 | NUR ---
GAVE ORDERED DUE MEDICATIONS. PT TOLERATED WELL. WILL CONTINUE TO MONITOR.
[2018-07-08] MEDS: FAMOTIDINE 20 MG TAB GT SCH (09:09)
[2018-07-08] MEDS: DOCUSATE 100 MG/10 ML UDC GT SCH (09:09)
[2018-07-08] MEDS: LACTOBACILLUS RHAMNOSUS GG 1 EACH CAP GT SCH (09:09)
[2018-07-08] MEDS: ATENOLOL 25 MG TAB GT SCH (09:09)
[2018-07-08] MEDS: ASCORBIC ACID 500 MG TAB GT SCH (09:09)
[2018-07-08] MEDS: levETIRAcetam 100 MG/ML ORASYR GT SCH (09:10)
--- NOTE | 2018-07-08 11:30 | NUR ---
PT LYING IN BED IN STABLE CONDITION. RESPIRATIONS EVEN AND UNLABORED. WILL CONTINUE TO MONITOR.
[2018-07-08 12:00] VITALS: BP 120/72
--- NOTE | 2018-07-08 13:00 | NUR ---
GAVE ORDERED MEDICATIONS DUE. PT TOLERATED WELL. WILL CONTINUE TO MONITOR.
[2018-07-08] MEDS: VALPROIC ACID 250 MG/5 ML UDC GT SCH (13:16)
[2018-07-08 13:34] LABS: MAGNESIUM 1.9 mg/dL (1.8-2.4); PHOSPHORUS 3.6 mg/dL (2.5-4.9)
--- NOTE | 2018-07-08 15:14 | NUR ---
Route Relief Driver Note: [facility] Per Giovanna from [facility] , patient may go to room 222b at their facility today after 7pm, accepting physician is ; case managers Leigh jaquez. Giovanna is aware patient is positive for MDRO.
--- NOTE | 2018-07-08 15:31 | NUR ---
CM NOTE PER SARAHI OF [facility] PATIENT WILL BE PICKED UP AT 1900 TODAY [facility]. MEDICAL PCS FORM FAXED TO [facility]. CHARGE NURSE WILLOW PARKER.
[2018-07-08] MEDS: NACL 0.9% 1,000 ML IV SCH (15:54)
[2018-07-08 16:00] VITALS: BP 114/55
--- NOTE | 2018-07-08 16:00 | NUR ---
ASSISTED WITH REPOSITIONING AND BEDDING CHANGE FOR TRANSFER. WILL CONTINUE TO MONITOR.
--- NOTE | 2018-07-08 17:38 | NUR ---
RENEWED RESTRAINTS. PT STILL TRYING TO REMOVE TRACH LINES AND TUBING. WILL CONTINUE TO MONITOR. PT IN STABLE CONDITION.
--- NOTE | 2018-07-08 18:45 | NUR ---
GAVE REPORT TO BRANDAN Cardoso AT [facility] FOR PT TRANSFER. ALL QUESTIONS ANSWERED AT THIS TIME.
--- NOTE | 2018-07-08 19:28 | NUR ---
GAVE REPORT TO NIGHT NURSE FOR CONTINUITY OF CARE. PT IN STABLE CONDITION.
--- NOTE | 2018-07-08 19:30 | NUR ---
RECEIVED PT IN STABLE CONDITION FROM AM NURSE. PT IS ON TRACH WITH O25L HUMIDIFIER. O2 SAT 97%. NO DISTRESS NOTED. PT IS APHASIC. WITH IVF INFUSING WELL ON THE LT UPPER ARM G #22. CLEAR AND PATENT. GT FEEDING ,TOLERATING WELL. BED ON LOWEST POSITION. FREQUENT ROUNDS NEEDED. HAS SAHARA SOFT WRIST RESTRAINT TO PREVENT PULLING OUT OF TUBINGS. CALL LIGHT PLACED WITHIN REACH. WILL CONTINUE TO MONITOR.
[2018-07-08 19:45] VITALS: BP 13/60
--- NOTE | 2018-07-08 21:50 | NUR ---
TRANSPORTER CAME . REPORT GIVEN. ALL DISCHARGE PAPERS GIVEN TO TRANSPORTER . PT DC TO [facility] WITH TRACH AND IN STABLE CONDITION ON O2 5L AND WITH IV ACCESS LT UPPER ARM G#22. CLEAR AND PATENT. NO OTHER PERSONAL BELONGINGS OF PT.
== END 2018-07-08 21:50 | DRG 720 ==
LOC: MED 12:02 → MTU 14:23
PROVIDERS: ADMIT General Practice; ATTEND General Practice
DX: A41.9 Sepsis, unspecified organism (principal); J96.21 Acute and chronic respiratory failure with hypoxia; J69.0 Pneumonitis due to inhalation of food and vomit; E44.0 Moderate protein-calorie malnutrition; Z93.0 Tracheostomy status; E87.8 Other disorders of electrolyte and fluid balance, not elsewhere classified; I95.9 Hypotension, unspecified; I48.91 Unspecified atrial fibrillation; G35 Multiple sclerosis; Z93.1 Gastrostomy status; R13.10 Dysphagia, unspecified; G40.909 Epilepsy, unspecified, not intractable, without status epilepticus; J44.9 Chronic obstructive pulmonary disease, unspecified; K21.9 Gastro-esophageal reflux disease without esophagitis; I10 Essential (primary) hypertension; D64.9 Anemia, unspecified; B96.4 Proteus (mirabilis) (morganii) as the cause of diseases classified elsewhere; Z79.82 Long term (current) use of aspirin; Z79.899 Other long term (current) drug therapy; Z68.20 Body mass index [BMI] 20.0-20.9, adult; Z74.01 Bed confinement status
CPT/HCPCS: 36415; 51702; 71045; 80048; 80053; 80305; 81003; 83036; 83605; 83690; 83735; 83880; 84100; 84134; 84443; 84484; 85025; 85610; 85730; 87040; 87070; 87081; 87086; 87186; 87205; 87804; 93005; 94640; 99285; J1644; J2060; J2543; J3475; J7030; J7620; Q0092